=== PATIENT | female | born 1985 | race Caucasian/White ===

== ENCOUNTER 2021-12-20 13:57 | Emergency (ER) | payer OTHER, SELFPAY ==
--- OUTSIDE RECORDS SUMMARY | 2021-12-20 13:59 | XMS REPORT | Continuity of Care Document ---
:1985 Author Organization [facility] t Address [address] [place] [address] Dr. Gutierrez. 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, R Primary Care Physician Doctor Unassigned, Name Attending Clinician Unavailable Ryan CORTEZ Attending Clinician Unavailable Therapy, Covid Infusion Attending Clinician Unavailable Ryan Cortez MD Attending Clinician Payers Payer Name Policy Type Policy Number Effective Date Expiration Date S ource Advance Directives Directive Decision Effective Termination Comments Source Date Date Healthcare Agents on N/A [facility] ersity FileNameRelationshipHealthcare [facility] Agent Medical RelationshipCommunicationRenown Health [facility] Care [phone] (Mobile) Lisa DaraotherFirst [facility] [phone] (Mobile) Problems Condition Condition Condition Status Onset Resolution Last Treating Co mments Source Name Details Category Date Date Treatment Clinician Date Pain Pain Disease Active 0 Univers pelvic pelvic 2-13 ity of 00:00: [place] 00 Medical Branch Insertion Insertion Disease Active Uni vers of of 1-10 ity of Nexplanon Nexplanon 00:00: [place] [address] Medical Branch Allergies, Adverse Reactions, Alerts Allergy Allergy Status Severity Reaction(s) Onset Inactive Treating Comm ents Source Name Type Date Date Clinician CODEINE DRUG Active Unknown-Cmnt 2018-0 Uni vers INGREDI 1-10 ity of 00:00: [place] 00 Medical Branch Codeine Propensi Active Unknown - High Univ ers ty to See comments 1-10 fevers ity of adverse 00:00: [place] reaction 00 Medical s to Branch drug Social History Social Habit Start Date Stop Date Quantity Comments Source History SDOH University o f Alcohol Frequency [place] M edical Branch History SDOH University o f Alcohol Std [place] Medical Drinks Branch History SDOH University o f Alcohol Binge [place] Medic al Branch Alcohol intake 2018-10-26 2018-10-26 .14 /d University of 00:00:00 00:00:00 [facility] Alcohol Comment 2018-10-06 2018-10-06 2 glasses of Univers ity of 00:00:00 00:00:00 wine/month [facility] Tobacco use and 2017-09-02 2017-09-02 Never used Universit y of exposure 00:00:00 00:00:00 [facility] Sex Ass[birth year] At [birth year] Universit y of 00:00:00 00:00:00 [facility] Smoking Status Start Date Stop Date Source Never smoker [facility] Medications Ordered Filled Start Stop Current Ordering Indication Dosage Frequency Signature Comments Components Source Medication Medication Date Date Medication? Clinician (SIG) Name Name casirivimab 2020- No [id number] 1200mg 1,200 mg, Univers -imdevimab 04-25 Subcutaneo it y of (REGEN-COV 20:15: 19:05 [place], [place]CE[place] (EUA[place] 00 :00 1 dose, Medical injection Daisy 04/25/21 Bran ch 1,200 mg at 1515, Routine casirivimab 2020- No [id number] 1200mg 1,200 mg, Univers -imdevimab 04-25 Subcutaneo it y of (REGEN-COV 20:15: 19:05 us, ONCE, [place] (EUA)) 00 :00 1 dose, Medical injection Daisy 04/25/21 Bran ch 1,200 mg at 1515, Routine No known 2018- No Univers medications 3-05 ity of 09:12: [address] No known 2018- No Univers medications 3-05 ity of 09:12: [address] No known 2019-0 No Univers medications 3-05 ity of 09:12: [address] No known 2019-0 No Univers medications 3-05 ity of 09:12: [address] No known No Univers medications ity of [facility] No known No Univers medications ity of [facility] Vital Signs Vital Name Observation Time Observation Value Comments Source Systolic blood 2021-04-25 19:50:00 117 mm[Hg] Univer sity of pressure [facility] Diastolic blood 2021-04-25 19:50:00 66 mm[Hg] Unive rsity of [facility] Heart rate 2021-04-25 19:50:00 82 /min [facility] Body temperature 2021-04-25 19:50:00 37 Brandi [facility] Res[facility] rate 2021-04-25 19:50:00 17 /min [facility] Oxygen saturation in 2021-04-25 19:50:00 100 /min [facility] Arterial blood by [facility] Pulse oximetry Branch Body height 2021-04-25 19:10:00 170.2 cm [facility] Body weight 2021-04-25 19:10:00 64.864 kg [facility] BMI 2021-04-25 19:10:00 22.40 kg/m2 [facility] Procedures Procedure Date / Time Performed Performing Clinician [facility] e EXTERNAL PROVIDER 2021-05-13 05:01:00 Doctor Unassigned, No [facility] 2021-04-25 05:01:00 Doctor Unassigned, No [facility] En[facility] Start End Encounter Admission Attending Care Care Encounter Source Date/Time Date/Time Type Type Clinicians Facility Department ID 2021-05-13 2021-05-13 Orders Doctor SMITH [id number] Univers 00:00:00 00:00:00 Only Unassigned, EMMANUEL [id number] ity of [place] [facility] [id number] Steven as [phone] [facility] 009 Branch 2021-04-25 2021-04-25 Outpatient R [facility] [id number] Univers 14:00:00 14:00:[id number] [facility] 2021-04-25 2021-04-25 Outpatient R CRISTAL [facility] [id number] [facility] 14:00:00 14:00:[address] [facility] 2021-04-25 2021-04-25 Nurse Therapy, Adc Covid Infusion [facility] [id number] Univers 12:36:23 13:36:23 Visit Bay Cortez [id number] ity [id number] [id number] [facility] 053 Branch 2021-04-25 2021-04-25 Orders Doctor SARAH [id number] [facility] 00:00:00 00:00:00 Only Unassigned, EMMANUEL [id number] ity of [place] [facility] [id number] Steven as [phone] [place] [address] Branch Results This patient has no known results.
[2021-12-20] MEDS ORDERED: TETANUS & DIPHTHERIA TOX,ADULT 0.5 ML VIAL ONE (14:36)
[2021-12-20] MEDS ORDERED: LIDOCAINE JELLY 2%- 5 ML TUBE ONE (14:36)
[2021-12-20] MEDS ORDERED: LIDOCAINE 1% MPF 30 ML VIAL ONE (15:41)
--- NOTE | 2021-12-20 15:57 | EDPHYS ---
Physician Documentation [facility] Name: Carol Fraga Age: 36 yrs Sex: Female : 1985 Arrival Date: 12/20/2021 Time: 13:58 Bed 26 Private MD: ED Physician Hiram Bernal HPI: 12/20 15:53 This 36 yrs old Female presents to ER via Ambulatory with complaints of Laceration To m Hand. 15:53 Onset: The symptoms/episode began/occurred acutely, just prior to arrival. Associated [facility] signs and symptoms: Pertinent negatives: deformity, dizziness, heavy bleeding, loss of consciousness, numbness distal to injury, suspected foreign body. The patient has not experienced similar symptoms in the past. This is a 36 year old female with no chronic medical conditions that presents to the ED with complaints of laceraiton to her right hand. Accidently cut when washing a glass. Denies other injury. Not UTD on tetnaus immunization. 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 - Social history:: Smoking status: Patient denies any tobacco usage or history of. ROS: 15:53 Constitutional: Negative for fever, chills, and weight loss, Cardiovascular: Negative jmm for chest pain, palpitations, and edema, Respiratory: Negative for shortness of breath, cough, wheezing, and pleuritic chest pain. 15:53 MS/extremity: Positive for injury or acute deformity. 15:53 All other systems are negative. Exam: 15:53 Constitutional: This is a well developed, well nourished patient who is awake, alert, jmm and in no acute distress. Head/Face: atraumatic. Eyes: EOMI, no conjunctival erythema appreciated ENT: Moist Mucus Membranes Neck: Trachea midline, Supple Chest/axilla: Normal chest wall appearance and motion. Cardiovascular: Regular rate and rhythm. No edema appreciated Respiratory: Normal respirations, no respiratory distress appreciated Abdomen/GI: Non distended, soft Back: Normal ROM 15:53 Skin: 2 cm laceration noted to the dorsum of the right hand. 15:53 Neuro: Motor: is normal. 15:53 Psych: Behavior/mood is pleasant, cooperative. Vital Signs: 14:02 BP 130 / 70; Pulse 90; Resp 17; Temp 98.5; Pulse Ox 98% on R/A; Weight 65.77 kg; Height ab2 5 ft. 7 in. (170.18 cm); Pain 2/10; 16:23 BP 120 / 71; Pulse 72; Resp 15; Pulse Ox 98% ; jl7 14:02 Body Mass Index 22.71 (65.77 kg, 170.18 cm) ab2 Laceration: 15:54 Wound Repair of 2cm ( 0.8in ) subcutaneous laceration to dorsum of right hand. Distal jmm neuro/vascular/tendon intact. Anesthesia: Local anesthetic administered with 2 mls of 1% lidocaine. Wound prep: Simple cleansing with betadine by me. Skin closed with 5 5-0 Prolene using simple sutures and sterile technique. Patient tolerated well. MDM: 14:31 Patient medically screened. [facility] 15:55 Data reviewed: vital signs, nurses notes. Counseling: I had a detailed discussion with meng the patient and/or guardian regarding: the historical points, exam findings, and any diagnostic results supporting the discharge/admit diagnosis, the need for outpatient follow up, to return to the emergency department if symptoms worsen or persist or if there are any questions or concerns that arise at home. ED course: Patient given wound infection return precautions. Patient understood and agrees with the plan of care. . 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 Exp: jl7 11/02/2023. Lot #: [id number]. } Route: IM; Site: right deltoid; 16:23 Follow up: Response: No adverse reaction jl7 15:45 Drug: Lidocaine (1 %) 1 application Volume: 20 ml; Route: Infiltration; jl7 16:00 Follow up: Response: No adverse reaction jl7 Disposition: 12/21 15:40 Co-signature as Attending Physician, Hiram Bernal MD I agree with the assessment and kdr plan of care. Disposition Summary: 12/20/21 15:56 Discharge Ordered Location: Home [facility] Condition: Stable [facility] Diagnosis - Laceration of the Right Hand [facility] Followup: [facility] - With: Private Physician - When: 10 - 14 days - Reason: Recheck today's complaints, Continuance of care, Staple/Suture removal, Re-evaluation by your physician Discharge Instructions: - Discharge Summary Sheet [facility] - Laceration Care, Adult [facility] Forms: - Medication Reconciliation Form [facility] - Thank You Letter [facility] - Antibiotic Education [facility] - Prescription Opioid Use [facility] Signatures: Hiram Bernal MD MD kdr Mickail, Joel, PA PA [facility] Jennifer Honeycutt RN RN jl7 Zak Aquino ab2 Corrections: (The following items were deleted from the chart) 12/20 14:04 14:03 Allergies: No Known Allergies; ab2 ab2
--- NOTE | 2021-12-20 15:57 | ER ---
Nurse's Notes [facility] Name: Carol Fraga Age: 36 yrs Sex: Female : 1985 Arrival Date: 12/20/2021 Time: 13:58 Bed 26 Private MD: Diagnosis: Laceration of the Right Hand Presentation: 12/20 14:02 Chief complaint: Patient states: "I was washing a glass dish and it broke and cut my ab2 right hand." Pt has laceration to top of right hand, bleeding controlled. Coronavirus screen: Vaccine status: Patient reports being unvaccinated. Client denies travel out of the [place] in the last 14 days. Ebola Screen: Patient negative for fever greater than or equal to 101.5 degrees Fahrenheit, and additional compatible Ebola Virus Disease symptoms Patient denies exposure to infectious person. Patient denies travel to an Ebola-affected area in the 21 days before illness onset. No symptoms or risks identified at this time. Complicating Factors: There are no complicating factors for this patient. Initial Sepsis Screen: Does the patient meet any 2 criteria? No. Patient's initial sepsis screen is negative. Does the patient have a suspected source of infection? No. Patient's initial sepsis screen is negative. Risk Assessment: Do you want to hurt yourself or someone else? Patient reports no desire to harm self or others. Onset of symptoms is unknown. 14:02 Method Of Arrival: Ambulatory ab2 14:02 Acuity: JOSELUIS 4 ab2 Triage Assessment: 14:04 General: Appears in no apparent distress. comfortable, Behavior is calm, cooperative, ab2 appropriate for age. Pain: Complains of pain in right hand. Injury Description: Laceration sustained to right hand was sustained 2-4 hours ago. is bleeding a small amount. 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 - Social history:: Smoking status: Patient denies any tobacco usage or history of. Screenin:30 Abuse screen: Denies threats or abuse. Denies injuries from another. Nutritional jl7 screening: No deficits noted. Tuberculosis screening: No symptoms or risk factors identified. Fall Risk None identified. Assessment: 14:30 General: Appears in no apparent distress. uncomfortable, Behavior is calm, cooperative, jl7 appropriate for age. Pain: Complains of pain in dorsum of right hand Pain currently is 2 out of 10 on a pain scale. Neuro: Level of Consciousness is awake, alert, obeys commands, Oriented to person, place, time, situation. Cardiovascular: Patient's skin is warm and dry. Respiratory: Airway is patent Respiratory effort is even, unlabored, Respiratory pattern is regular, symmetrical. Derm: Skin is pink, warm \\T\\ dry. Musculoskeletal: Range of motion: intact in all extremities. Injury Description: Laceration sustained to dorsum of right hand is 2.6 to 7.5 cm long, not bleeding, was sustained 30-60 minutes ago. is bleeding no active bleeding noted. 15:32 Reassessment: Patient appears in no apparent distress at this time. No changes from jl7 previously documented assessment. Patient and/or family updated on plan of care and expected duration. Pain level reassessed. Patient is alert, oriented x 3, equal unlabored respirations, skin warm/dry/pink. Vital Signs: 14:02 BP 130 / 70; Pulse 90; Resp 17; Temp 98.5; Pulse Ox 98% on R/A; Weight 65.77 kg; Height ab2 5 ft. 7 in. (170.18 cm); Pain 2/10; 16:23 BP 120 / 71; Pulse 72; Resp 15; Pulse Ox 98% ; jl7 14:02 Body Mass Index 22.71 (65.77 kg, 170.18 cm) ab2 ED Course: 13:58 Patient arrived in ED. as 14:03 Triage completed. ab2 14:04 Arm band placed on left wrist. ab2 14:21 Jennifer Honeycutt RN is Primary Nurse. jl7 14:30 Bin Beaulieu PA is PHCP. [facility] 14:30 Hiram Bernal MD is Attending Physician. [facility] 14:30 Patient has correct armband on for positive identification. Bed in low position. Call jl7 light in reach. Side rails up X 1. 14:30 Wound care: to laceration located on dorsum of right hand was cleaned with Hibiclens, jl7 irrigated with normal saline, Patient tolerated well. 16:00 Assist provider with laceration repair on dorsum of right hand that was 2.5 cm. or less jl7 using sutures. Set up tray. Performed by Bin GRIFFIN Dressed with band aid, Neosporin, Patient tolerated well. 16:24 Patient did not have IV access during this emergency room visit. jl7 Administered Medications: 14:45 Drug: Lidocaine Gel 2 % 1 application Route: Mucous Membrane; jl7 14:45 Drug: Tetanus-Diphtheria Toxoid Adult 0.5 ml {Binding Nicker: [employer]. Exp: jl7 11/02/2023. Lot #: [id number]. } Route: IM; Site: right deltoid; 16:23 Follow up: Response: No adverse reaction jl7 15:45 Drug: Lidocaine (1 %) 1 application Volume: 20 ml; Route: Infiltration; jl7 16:00 Follow up: Response: No adverse reaction jl7 Outcome: 15:56 Discharge ordered by MD. fan 16:24 Discharged to home ambulatory. jl7 16:24 Condition: stable 16:24 Discharge instructions given to patient, Instructed on discharge instructions, follow up and referral plans. Demonstrated understanding of instructions, follow-up care. 16:26 Patient left the ED. jl7 Signatures: Bin Beaulieu PA PA jmm Martinez, Amelia as Leal, Jahala, RN RN jl7 Zak Aquino ab2 Corrections: (The following items were deleted from the chart) 14:04 14:03 Allergies: No Known Allergies; ab2 ab2
[2021-12-20 17:25] VITALS: TEMP 98.5; O2SAT 98
[2021-12-20 17:26] VITALS: BP 120/71
== END 2021-12-20 16:26 | disposition home or self-care (01) ==
LOC: ER 13:57
PROC: 0JQJ0ZZ Repair Right Hand Subcutaneous Tissue and Fascia, Open Approach (ICD-10-PCS; principal; 2021-12-20)
DX: S61.411A Laceration without foreign body of right hand, initial encounter (principal); W25.XXXA Contact with sharp glass, initial encounter; Y93.G1 Activity, food preparation and clean up; Z88.5 Allergy status to narcotic agent; Z23 Encounter for immunization
CPT/HCPCS: 90471; 90714; 99284

== ENCOUNTER 2023-06-17 18:21 | Emergency (ER) | payer SELFPAY ==
--- OUTSIDE RECORDS SUMMARY | 2023-06-17 18:24 | XMS REPORT | Continuity of Care Document ---
:1985 Author Organization [facility] t Address [address] [place] [address] [place] [address] Care Team Providers Name Role Phone TIKI RAGSDALE Primary Care Physician Unavailable TIKI RAGSDALE Attending Clinician Unavailable Doctor Unassigned, [place] Attending Clinician Unavailable BAY CORTEZ Attending Clinician Unavailable Therapy, Adc Covid Infusion Attending Clinician Unavailable Bay Cortez MD Attending Clinician Payers Payer Name Policy Type Policy Number Effective Date Expiration Date Joseph santiago [id number] 2017 00:00:00 Problems Condition Condition Condition Status Onset Resolution Last Treating Co mments Source Name Details Category Date Date Treatment Clinician Date Pain Pain Disease Active Univers pelvic pelvic 2-13 ity of 00:00: [place] [address] Medical Branch Insertion Insertion Disease Active Uni vers of of 1-10 ity of Nexplanon [facility] Allergies, Adverse Reactions, Alerts Allergy Allergy Status Severity Reaction(s) Onset Inactive Treating Comm ents Source Name Type Date Date Clinician CODEINE DRUG Active Unknown-Cmnt Uni vers INGREDI 1-10 ity of 00:00: [place] 00 Medical Branch Codeine Propensi Active Unknown - High Univ ers ty to See comments 1-10 fevers ity of adverse 00:00: [place] reaction 00 Medical s to Branch drug Social History Social Habit Start Date Stop Date Quantity Comments Source History [facility] University o f Alcohol Frequency [place] M edical Branch History [facility] o f Alcohol Std [place] Medical Drinks Branch History [facility] o f Alcohol Binge [place] Medic al Branch Alcohol intake 2018-10-26 2018-10-26 .14 /d University of 00:00:00 00:00:00 [facility] Alcohol Comment 2018-10-06 2018-10-06 2 glasses of Univers ity of 00:00:00 00:00:00 wine/month [facility] Tobacco use and 2017-09-02 2017-09-02 Never used Universit y of exposure 00:00:00 00:00:00 [facility] Sex Assigned At [birth year] Universit y of 00:00:00 00:00:00 [facility] Smoking Status Start Date Stop Date Source Never smoker [facility] Medications Ordered Filled Start Stop Current Ordering Indication Dosage Frequency Signature Comments Components Source Medication Medication Date Date Medication? Clinician (SIG) Name Name casirivimab 2020- No [id number] 1200mg 1,200 mg, Univers -imdevimab 04-25 Subcutaneo it y of (REGEN-COV 20:15: 19:05 [place], [place]CE, [place] (EUA)) 00 :00 1 dose, Medical injection Daisy 04/25/21 Bran ch 1,200 mg at 1515, Routine casirivimab 2020- No [id number] 1200mg 1,200 mg, Univers -imdevimab 04-25 Subcutaneo it y of (REGEN-COV 20:15: 19:05 us, ONCE, [place] (EUA)) 00 :00 1 dose, Medical injection Daisy 04/25/21 Bran ch 1,200 mg at 1515, Routine No known 2019- No Univers medications 3-05 ity of 09:12: [address] No known 2019- No Univers medications 3-05 ity of 09:12: [address] No known 2019-0 No Univers medications 3-05 ity of 09:12: [address] No known 2019-0 No Univers medications 3-05 ity of 09:12: [address] No known No Univers medications ity of [facility] No known No Univers medications ity of [facility] Vital Signs Vital Name Observation Time Observation Value Comments Source Systolic blood 2021-04-25 19:50:00 117 mm[Hg] Univer sity of pressure [facility] Diastolic blood 2021-04-25 19:50:00 66 mm[Hg] Unive rsity of [facility] Heart rate 2021-04-25 19:50:00 82 /min [facility] Body temperature 2021-04-25 19:50:00 37 Brandi [facility] Respiratory rate 2021-04-25 19:50:00 17 /min [facility] Oxygen saturation in 2021-04-25 19:50:00 100 /min [facility] Arterial blood by [facility] [place] Pulse oximetry [place] Body height 2021-04-25 19:10:00 170.2 cm [facility] Body weight 2021-04-25 19:10:00 64.864 kg [facility] BMI 2021-04-25 19:10:00 22.40 kg/m2 [facility] Procedures Procedure Date / Time Performed Performing Clinician Sourc e EXTERNAL PROVIDER 2021-05-13 05:01:00 Doctor Unassigned, No Univ [facility] IMMTRAC2 CONSENT 2021-04-25 05:01:00 [facility] Start End Encounter Admission Attending Care Care Encounter Source Date/Time Date/Time Type Type Clinicians Facility Department ID 2022-12-17 2022-12-17 Outpatient Kasey RAGSDALE [facility] [id number] Univers 08:00:00 08:00:00 TIKI [facility] 2021-05-13 2021-05-13 Orders Doctor SMITH [id number] Univers 00:00:00 00:00:00 Only Unassigned, EMMANUEL [id number] [facility] [id number] Steven as [id number] [place] [address] Branch 2021-04-25 2021-04-25 Outpatient Kasey CORTEZ [facility] [id number] Univers 14:00:00 14:00:00 BAY [facility]os [facility] 2021-04-252021-04-25 Nurse Therapy, Adc Covid Infusion [facility] [id number] Univers 12:36:23 13:36:23 Visit Bay Cortez [id number] ity of [id number] [id number] [facility] 053 Branch 2021-04-25 2021-04-25 Orders Doctor SARAH [id number] Univers 00:00:00 00:00:00 Only Unassigned, EMMANUEL [id number] ity of [place] [facility] [id number] Steven as [id number] [place] [address] Branch Results Test Description Test Time Test Comments Results Result Comments Source TSH, THIRD GENERATION 2022-08-07 05:30:38 Test Item Value Reference Range Interpretation Comme nts TSH, THIRD GENERATION (test 1.580 UIU/ML 0.400-4.100 UNLESS OTHERWISE INDICATED, code = [id number]) ALL TESTING PER FORMED [facility], I RI. [address] [place] [address] HEALTHCARE SCIENCE SPECIALIST: Maricel SUAREZ [id number] [place] [id number]
[2023-06-17] MEDS ORDERED: MORPHINE 4 MG/ML SYR ONE (19:15)
[2023-06-17] MEDS ORDERED: ONDANSETRON 4 MG/2 ML VIAL ONE (19:16)
[2023-06-17] MEDS ORDERED: NA CHLORIDE 0.9% 1,000 ML ONE (19:16)
[2023-06-17] MEDS ORDERED: FAMOTIDINE 20 MG/2 ML VIAL IV ONE (19:16)
[2023-06-17 19:35] LABS: Specific Gravity < 1.005 (1.005-1.030); Urine Bilirubin NEGATIVE (Negative); Urine Blood Negative (Negative); Urine Clarity Clear (Clear); Urine Color Colorless (Yellow); Urine Glucose NEGATIVE (Negative); Urine Protein NEGATIVE (Negative); Urine Urobilinogen Normal (Normal); Urine pH 6.5 (5.0-7.0)
[2023-06-17 19:40] LABS: Specific Gravity < 1.005 (1.005-1.030)
[2023-06-17 19:41] LABS: Absolute Lymphocytes (CBC) 2.7 K/uL (0.7-4.9); Hematocrit 40.3 % (36.0-45.0); Lymphocytes % 26.3 % (15.3-44.8); MPV 7.5 fL (7.6-11.3); Platelets 244 thou/uL (152-406); RBC Red Blood Cell Count 4.47 M/uL (3.86-4.86)
[2023-06-17] MEDS ORDERED: KETOROLAC 30 MG/ML INJ ONE (19:47)
[2023-06-17 19:49] LABS: Albumin 3.6 g/dL (3.4-5.0); Bilirubin Total 0.3 mg/dL (0.2-1.0); Protein, Total 6.8 g/dL (6.4-8.2)
--- NOTE | 2023-06-17 20:48 | RAD REPORT ---
EXAM DESCRIPTION: CTAbdomen Pelvis W Contrast - 06/17/2023 8:38 pm CLINICAL HISTORY: Abdominal pain. ABD PAIN COMPARISON: No comparisons TECHNIQUE: Biphasic CT imaging of the abdomen and pelvis was performed with 100 ml non-ionic IV cont rast. All CT scans are performed using dose optimization technique as appropriate and may include automated exposure control or mA/KV adjustment according to patient size. FINDINGS: The lung bases are clear. The liver, spleen, pancreas, adrenal glands and kidneys are within normal limits. No bowel obstruction, free air, intra-abdominal free fluid or abscess. The appendix is normal. No e vidence of significant lymphadenopathy. Trace pelvic free fluid. No suspicious bony findings. IMPRESSION: No acute intra-abdominal or pelvic finding.
--- NOTE | 2023-06-17 21:16 | EDPHYS ---
Physician Documentation [facility] Name: Carol Fraga Age: 38 yrs Sex: Female : 1985 Arrival Date: 06/17/2023 Time: 18:21 Bed 15 Private MD: ED Physician Ritesh Strauss HPI: 06/17 19:24 This 38 yrs old Female presents to ER via Ambulatory with complaints of Bloody Stools, kb Abdominal Pain. 19:24 Patient is a 38-year-old female with no medical history who presents for pain to left kb lower quadrant that radiates to the rest of her abdomen, nausea and black stool that started this morning. Denies fever, vomiting.. 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 - Social history:: Smoking status: Patient denies any tobacco usage or history of. ROS: 19:24 Constitutional: Negative for fever, chills, and weight loss, kb 19:24 Abdomen/GI: Positive for abdominal pain, nausea, black/tarry stool, 19:24 All other systems are negative, Exam: 19:24 Constitutional: This is a well developed, well nourished patient who is awake, alert, kb and in no acute distress. Head/Face: Normocephalic, atraumatic. ENT: Moist Mucous membranes Cardiovascular: Regular rate Respiratory: Respirations even and unlabored. No increased work of breathing. Talking in full sentences Skin: Warm, dry with normal turgor. Normal color. MS/ Extremity: Pulses equal, no cyanosis. Neurovascular intact. Full, normal range of motion. Neuro: Awake and alert, GCS 15, oriented to person, place, time, and situation. Moves all extremities. Normal gait. 19:24 Abdomen/GI: Inspection: abdomen appears normal, Bowel sounds: normal, Palpation: soft, in all quadrants, mild abdominal tenderness, in the right upper quadrant and left upper quadrant, moderate abdominal tenderness, in the right lower quadrant and left lower quadrant, Vital Signs: 18:36 BP 135 / 94; Pulse 80; Resp 16 S; Temp 98.8; Pulse Ox 100% on R/A; Weight 67.13 kg (R); cm10 Height 5 ft. 7 in. ; Pain 8/10; 19:20 BP 123 / 83; Pulse 69; Resp 18 S; Pulse Ox 100% on R/A; jw7 20:00 BP 126 / 74; Pulse 75; Resp 17 S; Pulse Ox 100% on R/A; jw7 21:00 BP 114 / 84; Pulse 61; Resp 16 S; Pulse Ox 100% on R/A; jw7 18:36 Body Mass Index 23.18 (67.13 kg, 170.18 cm) cm10 18:36 Pain Scale: Adult cm10 MDM: 18:28 Patient medically screened. kb 19:25 Differential diagnosis: diverticulitis, gastritis, GI Bleed, non-specific abd pain, kb Pyelonephritis, urinary tract infection, Colitis. Data reviewed: vital signs, nurses notes. 21:15 I considered the following discharge prescriptions or medication management in the emergency department Antibiotics: At this time antibiotics are not recommended. Test considered but Not performed: Ultrasound transvaginal US considered and discussed with pt, she prefers not to have that done. . Counseling: I had a detailed discussion with the patient and/or guardian regarding the historical points, exam findings, and any diagnostic results supporting the discharge/admit diagnosis, lab results, radiology results, the need for outpatient follow up, a family practitioner, to return to the emergency department if symptoms worsen or persist or if there are any questions or concerns that arise at home. 06/17 18:39 Order name: CBC with Diff; Complete Time: 19:43 kb 06/17 18:39 Order name: CMP; Complete Time: 19:59 kb 06/17 18:39 Order name: Lipase; Complete Time: 19:59 kb 06/17 18:39 Order name: Test, Urine; Complete Time: 19:41 kb 06/17 18:39 Order name: Urinalysis w/ reflexes; Complete Time: 19:39 kb 06/17 18:39 Order name: CT Abd/Pelvis - IV Contrast Only; Complete Time: 21:36 kb 06/17 18:39 Order name: IV Saline Lock; Complete Time: 19:23 kb 06/17 18:39 Order name: Labs collected and sent; Complete Time: : kb Administered Medications: 19:23 Drug: NS 0.9% IV 1000 ml IV at 1 bolus Per protocol; 1000 mL bolus Route: IV; Rate: 1 nj1 bolus; Site: right antecubital; 21:38 Follow up: Response: No adverse reaction; IV Status: Completed infusion; IV Intake: jw7 1000ml 19:23 Drug: Ondansetron IVP 4 mg IVP once; over 2 minutes Route: IVP; Site: right antecubital;nj1 21:37 Follow up: Response: No adverse reaction; Marked relief of symptoms jw7 19:25 Drug: Famotidine IVP 20 mg IVP once; dilute with 10 mL 0.9% NaCl; give over 2 minutes nj1 Route: IVP; Site: right antecubital; 21:38 Follow up: Response: No adverse reaction; Marked relief of symptoms jw7 19:35 Drug: Ketorolac IVP 15 mg IVP once Route: IVP; Site: right antecubital; jw7 21:38 Follow up: Response: No adverse reaction; Marked relief of symptoms jw7 21:37 Not Given (Patient Refused): morphineor iv 4 mg IVP once over 4 mins jw7 Disposition Summary: 06/17/23 21:16 Discharge Ordered Notes: Location: Home Condition: Stable Diagnosis - Lower abdominal pain, unspecified kb Followup: kb - With: Emergency Department - When: As needed - Reason: Worsening of condition Followup: kb - With: Private Physician - When: 2 - 3 days - Reason: Recheck today's complaints, Continuance of care, Re-evaluation by your physician Discharge Instructions: - Discharge Summary Sheet kb - Abdominal Pain, Adult, [id number] kb Forms: - Medication Reconciliation Form kb - Thank You Letter kb - Antibiotic Education kb - Prescription Opioid Use kb - Patient Portal Instructions kb - Leadership Thank You Letter kb Prescriptions: - Zofran 4 mg Oral tablet - take 1 tablet ORAL route every 6 hours As needed; 12 tablet; Refills: 0, kb Product Selection Permitted - dicyclomine 20 mg Oral tablet - take 1 tablet ORAL route 4 times per day As needed; 20 tablet; Refills: 0, kb Product Selection Permitted Signatures: Dispatcher [employer] Tabitha Banerjee, SHERRIEC KALPANA-Loida Panchal RN RN jw7 Samantha Blanco, RN RN nj1 Audrey Dowell, RN RN cm10
--- NOTE | 2023-06-17 21:16 | ER ---
Nurse's Notes [facility] Name: Carol Fraga Age: 38 yrs Sex: Female : 1985 Arrival Date: 06/17/2023 Time: 18:21 Bed 15 Private MD: Diagnosis: Lower abdominal pain, unspecified Presentation: 06/17 18:36 Chief complaint: Patient states: LLQ abdominal pain onset this morning. Pt states that cm10 this morning she had "bile in my stools and now black tarry stools." Pt states that the pain is worse with ambulation. Coronavirus screen: Vaccine status: Patient reports being unvaccinated. Client denies travel out of the [place] in the last 14 days. Ebola Screen: Patient denies travel to an Ebola-affected area in the 21 days before illness onset. No symptoms or risks identified at this time. Initial Sepsis Screen: Does the patient meet any 2 criteria? No. Patient's initial sepsis screen is negative. Does the patient have a suspected source of infection? No. Patient's initial sepsis screen is negative. Risk Assessment: Do you want to hurt yourself or someone else? Patient reports no desire to harm self or others. Onset of symptoms was June 17, 2023. 18:36 Method Of Arrival: Ambulatory 10 18:36 Acuity: JOSELUIS 3 cm10 Triage Assessment: 18:39 General: Appears in no apparent distress. uncomfortable, Behavior is calm, cooperative. 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 - Social history:: Smoking status: Patient denies any tobacco usage or history of. Screenin:35 [facility] ED Fall Risk Assessment (Adult) History of falling in the last 3 months, jw7 including since admission No falls in past 3 months (0 pts) Score/Fall Risk Level 0 - 2 = Low Risk Oriented to surroundings, Maintained a safe environment. Abuse screen: Denies threats or abuse. Denies injuries from another. Nutritional screening: No deficits noted. Tuberculosis screening: No symptoms or risk factors identified. Assessment: 19:00 General: Appears in no apparent distress. uncomfortable, Behavior is calm, cooperative, nj1 appropriate for age. 19:00 Pain: Complains of pain in left lower quadrant Pain radiates to back Pain currently is nj1 5 out of 10 on a pain scale. Neuro: Level of Consciousness is awake, alert, obeys commands, Oriented to person, place, time, situation. Cardiovascular: Patient's skin is warm and dry. Respiratory: Airway is patent Respiratory effort is even, unlabored. GI: Reports lower abdominal pain, diarrhea. 20:29 Reassessment: Patient appears in no apparent distress at this time. Patient and/or 7 family updated on plan of care and expected duration. Pain level reassessed. Patient is alert, oriented x 3, equal unlabored respirations, skin warm/dry/pink. Patient states feeling better. Patient states symptoms have improved. 21:30 Reassessment: Patient appears in no apparent distress at this time. No changes from [facility] previously documented assessment. Patient and/or family updated on plan of care and expected duration. Pain level reassessed. Patient is alert, oriented x 3, equal unlabored respirations, skin warm/dry/pink. Vital Signs: 18:36 BP 135 / 94; Pulse 80; Resp 16 S; Temp 98.8; Pulse Ox 100% on R/A; Weight 67.13 kg (R); cm10 Height 5 ft. 7 in. ; Pain 8/10; 19:20 BP 123 / 83; Pulse 69; Resp 18 S; Pulse Ox 100% on R/A; jw7 20:00 BP 126 / 74; Pulse 75; Resp 17 S; Pulse Ox 100% on R/A; jw7 21:00 BP 114 / 84; Pulse 61; Resp 16 S; Pulse Ox 100% on R/A; jw7 18:36 Body Mass Index 23.18 (67.13 kg, 170.18 cm) cm10 18:36 Pain Scale: Adult cm10 ED Course: 18:25 Patient arrived in ED. ts1 18:28 [facility] May [facility]C [facility] kb 18:28 Ritesh Strauss MD is Attending Physician. kb 18:38 Triage completed. cm10 18:39 Arm band placed on Patient placed in an exam room, on a stretcher. cm10 18:41 Samantha Blanco, RN is Primary Nurse. nj1 19:16 Report given to Loida RENDON. nj1 19:23 Test, Urine Sent. ls5 19:23 Urinalysis w/ reflexes Sent. ls5 19:23 Lipase Sent. ls5 19:24 Inserted saline lock: 20 gauge in right antecubital area, using aseptic technique. ls5 Blood collected. 19:36 Patient has correct armband on for positive identification. Bed in low position. Call jw7 light in reach. 20:40 CT Abd/Pelvis - IV Contrast Only In Process Unspecified. EDMS 21:39 No provider procedures requiring assistance completed. IV discontinued, intact, jw7 bleeding controlled, No redness/swelling at site. Pressure dressing applied. 21:40 Provided Education on: discharge instructions and medication usage. jw7 Administered Medications: 19:23 Drug: NS 0.9% IV 1000 ml IV at 1 bolus Per protocol; 1000 mL bolus Route: IV; Rate: 1 nj1 bolus; Site: right antecubital; 21:38 Follow up: Response: No adverse reaction; IV Status: Completed infusion; IV Intake: jw7 1000ml 19:23 Drug: Ondansetron IVP 4 mg IVP once; over 2 minutes Route: IVP; Site: right antecubital;nj1 21:37 Follow up: Response: No adverse reaction; Marked relief of symptoms jw7 19:25 Drug: Famotidine IVP 20 mg IVP once; dilute with 10 mL 0.9% NaCl; give over 2 minutes nj1 Route: IVP; Site: right antecubital; 21:38 Follow up: Response: No adverse reaction; Marked relief of symptoms jw7 19:35 Drug: Ketorolac IVP 15 mg IVP once Route: IVP; Site: right antecubital; jw7 21:38 Follow up: Response: No adverse reaction; Marked relief of symptoms jw7 21:37 Not Given (Patient Refused): morphineor iv 4 mg IVP once over 4 mins jw7 Medication: 21:40 VIS not applicable for this client. jw7 Intake: 21:38 IV: 1000ml; Total: 1000ml. jw7 Outcome: 21:16 Discharge ordered by MD. pulido 21:39 Discharged to home ambulatory, jw7 21:39 Condition: stable 21:39 Discharge instructions given to patient, Instructed on discharge instructions, follow up and referral plans. medication usage, Demonstrated understanding of instructions, follow-up care, medications, Prescriptions given X 2, 21:40 Patient left the ED. jw7 Signatures: Dispatcher [employer] EDMS Tabitha May, SPANISH LECTURER-C SPANISH LECTURER-Loida Panchal RN RN jw7 Sebastián Lewis ls5 Samantha Blanco RN RN nj1 Piper Villeda PAS PAS ts1 Audrey Dowell RN RN cm10
[2023-06-18 16:11] VITALS: BP 114/84; TEMP 98.8; O2SAT 100
== END 2023-06-17 21:40 | disposition home or self-care (01) ==
LOC: ER 18:21
DX: R10.32 Left lower quadrant pain (principal)
CPT/HCPCS: 36415; 74177; 80053; 81003; 81025; 83690; 85025; J2405; J7030; Q9967